=== PATIENT | female | born 1970 | race African-American/Black ===

== ENCOUNTER 2018-05-04 10:02 | Emergency (ER) | payer BC | END 2018-05-04 12:02 | disposition home or self-care (01) | LOC: FTE 10:02 | DX: K52.9 Noninfective gastroenteritis and colitis, unspecified (principal); J06.9 Acute upper respiratory infection, unspecified; F17.210 Nicotine dependence, cigarettes, uncomplicated; J45.909 Unspecified asthma, uncomplicated | CPT/HCPCS: 99283 ==

== ENCOUNTER 2019-01-20 15:09 | Emergency (ER) | payer SELFPAY, BC | END 2019-01-20 22:19 | disposition left against medical advice (07) | LOC: FTE 15:09 | DX: Z53.21 Procedure and treatment not carried out due to patient leaving prior to being seen by health care provider (principal) ==